=== PATIENT | female | born 1950 | race Caucasian/White ===

== ENCOUNTER 2021-10-22 14:23 | Emergency (ER) | payer BC, MEDICARE | END 2021-10-22 16:30 | disposition home or self-care (01) | LOC: JD.ED 14:23 | DX: T78.40XA Allergy, unspecified, initial encounter (principal); Z88.8 Allergy status to other drugs, medicaments and biological substances; Z88.1 Allergy status to other antibiotic agents | CPT/HCPCS: 99282 ==